=== PATIENT | female | born 1945 | race Caucasian/White ===

== ENCOUNTER 2017-02-22 09:09 | Inpatient (IN) | payer OTHER ==
[~2017-02-22] VITALS: Ht 157.5 cm; Wt 84.6 kg
--- NOTE | ~2017-02-22 | EKG ---
[address] [place] [address] ELECTROCARDIOGRAM REPORT Name: OKSANABATORREY López Room #: 447-P ADM IN M.R.#: [id number] Admission: 02/22/17 Attend Phys: Fawad Meehan MD Discharge: Date of : 43 Report #: [id number] THIS REPORT FOR: //name// [facility] Test Date: 2017-02-26 Test Time: 06:54:38 Pat Name: MAMTA GANDHI Department: Room: 447 Gender: F Fireman Helper: JUAN MANUEL : 1945 Requested By: Gerardo Connolly Order Number: [id number] MD: Son Tinajero Measurements Intervals [place] Rate: 96 P: 66 [place]: 148 QRS: 72 QRSD: 91 T: 41 QT: 384 QTc: 486 Interpretive Statements Sinus rhythm Borderline prolonged QT interval Compared to ECG 02/25/2017 06:53:35 Sinus tachycardia no longer present Electronically Signed On 02-26-2017 8:25:54 AUTO CLUB TRAVEL COUNSELOR by Son Tinajero [email or web address] <ELECTRONICALLY SIGNED> By: Son Tinajero MD, [facility] 02/26/17 [phone] Son Tinajero MD, FACC /EPI
--- NOTE | ~2017-02-22 | EKG ---
[place] [address] [facility] [place] [address] ELECTROCARDIOGRAM REPORT Name: MAMTA GANDHI Room #: 447-P ADM IN M.R.#: [id number] Admission: 02/22/17 Attend Phys: Fawad Meehan MD Discharge: Date of : 43 Report #: [id number] THIS REPORT FOR: //name// [facility] Test Date: 2017-02-25 Test Time: 06:53:35 Pat Name: MAMTA GANDHI Department: Room: 447 Gender: F Drencher: JUAN MANUEL : 1945 Requested By: Sheron Borrego Order Number: [id number] MD: Son Tinajero Measurements Intervals [place] Rate: 100 P: 59 [place]: 135 QRS: 39 QRSD: 82 T: 21 QT: 345 QTc: 445 Interpretive Statements Sinus tachycardia Otherwise no significant abnormality Baseline wander in lead(s) V6 Compared to ECG 02/24/2017 20:24:25 No significant change was found Electronically Signed On 02-25-2017 8:40:56 RESPIRATORY THERAPY INSTRUCTOR by Son Tinajero [email or web address] <ELECTRONICALLY SIGNED> By: Son Tinajero MD, [facility] 02/25/17 [phone] 0653 Son Tinajero MD, [facility] /EPI
--- NOTE | ~2017-02-22 | EKG ---
[address] [place] [address] ELECTROCARDIOGRAM REPORT Name: MAMTA GANDHI Room #: 447-P ADM IN M.R.#: [id number] Admission: 02/22/17 Attend Phys: Fawad Meehan MD Discharge: Date of : 43 Report #: [id number] THIS REPORT FOR: //name// [facility] Test Date: 2017-02-24 Test Time: 20:54:06 Pat Name: MAMTA GANDHI Department: Room: 447 Gender: F Jazz Singer: Tad MELCHOR : 1945 Requested By: Eboni Weinstein Order Number: [id number] MD: Son Tinajero Measurements Intervals [place] Rate: 115 P: 57 [place]: 135 QRS: 43 QRSD: 83 T: 7 QT: 322 QTc: 446 Interpretive Statements Sinus tachycardia Otherwise no significant abnormality Compared to ECG 02/24/2017 20:24:25 Atrial fibrillation no longer present Electronically Signed On 02-25-2017 8:29:30 SPEECH LANGUAGE ASSISTANT by Son Tinajero [email or web address] <ELECTRONICALLY SIGNED> By: Son Tinajero MD, [facility] 02/25/17 08 53 53 Son Tinajero MD, FAC /EPI
--- NOTE | ~2017-02-22 | HC ---
[facility] [place] [address] CONSULTATION Name: MAMTA GANDHI Maribel Room #: 447-P [facility] IN M.R.#: [id number] Admission: 02/22/17 Attend Phys: Fawad Meehan MD Discharge: 02/26/17 Date of : 43 Report #: [id number] THIS REPORT FOR: //name// CC: Michael Meehan MD DATE OF SERVICE: 02/23/2017 PULMONARY CONSULTATION REFERRING PROVIDER: Fawad Meehan MD REASON FOR CONSULTATION: Shortness of breath and hypoxemia. CHIEF COMPLAINT: Headache. HISTORY OF PRESENT ILLNESS: Our group was asked to see the patient in consultation while hospitalized at [facility]. A pleasant 71-year-old woman without any past pulmonary history. Denies ever use of tobacco. No prior pulmonary diagnosis. Did have a history of lymphoma she states 50 years ago diagnosed by cervical lymph node. Biopsy was treated by her report with neck and chest radiation. No evidence of recurrent disease, had been having some headaches about 24 hours ago that prompted Emergency Room evaluation. An imaging study of the head with MRA showed multiple right cerebral hemispheric subcortical abnormalities suggestive of prior small strokes that are currently under evaluation. Lumbar puncture was unrevealing as part of her workup for nausea, vomiting, weakness and headache. She underwent CT chest and pelvis, which did reveal some enlargement of some mediastinal lymph nodes of unclear significance. No other pulmonary pathology was noted. However, the patient has been hypoxic during the hospital stay. She states earlier today when placed on room air, oxygen saturations were in the 70s currently is on 3 liters. Again, no cough, congestion, wheezing, chest pain. Echocardiogram is pending. No prior thyroid or prior neurologic disease that she is aware of. ALLERGIES: None known. PAST MEDICAL HISTORY: 1. History of hypertension. 2. History of Hodgkin's lymphoma as described in HPI. OUTPATIENT MEDICATIONS: Include atorvastatin. SOCIAL HISTORY: Never a smoker, occasional alcohol consumption. Currently retired from [employer]. [facility] [address] [place] [address] CONSULTATION Name: MAMTA GANDHI Room #: 447-P [facility] IN M.R.#: [id number] Admission: 02/22/17 Attend Phys: Fawad Meehan MD Discharge: 02/26/17 Date of : 43 Report #: [id number] FAMILY HISTORY: Significant for hypertension. REVIEW OF SYSTEMS: CONSTITUTIONAL: No fevers or chills, change in weight or appetite, had headaches as described. ENT: No visual disturbance, upper respiratory congestion, rhinorrhea or dysphagia. CARDIOVASCULAR: No chest pains or palpitations. GASTROINTESTINAL: Some nausea and vomiting. GENITOURINARY: No dysuria, no frequency or hematuria. INTEGUMENT: Denies any rash. MUSCULOSKELETAL: No joint pains or swelling. NEUROLOGIC: Some numbness over the distal left upper extremity with some clumsiness. PHYSICAL EXAMINATION: VITAL SIGNS: Afebrile, pulse 100, respiratory rate 18, blood pressure 138/64, oxygen saturation 96% on 3 liters. GENERAL: This is a pleasant elderly woman in no distress. HEENT: Clear oropharynx. NECK: Supple. No lymphadenopathy. LUNGS: Clear. No wheeze or crackles. Chest revealed some kyphosis. CARDIOVASCULAR: Heart regular. No murmurs noted. ABDOMEN: Soft, nontender, no masses. EXTREMITIES: Without edema. LABORATORY DATA: A CBC revealed an elevated white blood cell count of 17,000, hemoglobin 10, hematocrit 31, platelet count 387. ESR is 65. Sodium 140, potassium 3.2, chloride 104, bicarbonate 26, BUN 6, creatinine 0.8, glucose 129. IMAGING STUDIES: As described in HPI. IMPRESSION AND PLAN: 1. Hypoxemia of unclear etiology, would be concerned about possible shunt physiology that may be such as a patent foramen ovale, which may contribute to her prior small cerebrovascular accidents, suggest further evaluation with a bubble study for echo, would also consider hypoventilation syndrome associated with neurologic disease or thyroid disease. We will check TSH and an arterial blood gas in a.m. 2. Small cerebrovascular accidents. 3. Anemia. 4. Leukocytosis. Recommend as outlined above. We will evaluate pulmonary status further now it may be relating to her neurologic status. [address] [address] CONSULTATION Name: MAMTA GANDHI Room #: 447-P DIS IN M.R.#: [id number] Admission: 02/22/17 Attend Phys: Fawad Meehan MD Discharge: 02/26/17 Date of : 43 Report #: [id number] Thank you for requesting your suggestions. <ELECTRONICALLY SIGNED> By: Kamlesh Marrero MD 02/27/17 1726 2100 0258 Kamlesh Marrero MD /nt
--- NOTE | ~2017-02-22 | EKG ---
[address] [place] [address] ELECTROCARDIOGRAM REPORT Name: MAMTA GANDHI Room #: 447-P ADM IN M.R.#: [id number] Admission: 02/22/17 Attend Phys: Fawad Meehan MD Discharge: Date of : 43 Report #: [id number] THIS REPORT FOR: //name// [facility] Test Date: 2017-02-24 Test Time: 20:24:25 Pat Name: MAMTA GANDHI Department: Room: 447 P Gender: F Appeals Examiner: Tad MELCHOR : 1945 Requested By: Eboni Weinstein Order Number: [id number] MD: Gerardo Connolly Measurements Intervals [place] Rate: 158 P: IN: QRS: 84 QRSD: 85 T: -13 QT: 289 QTc: 469 Interpretive Statements Atrial fibrillation with rapid V-rate Borderline right axis deviation Repolarization abnormality, prob rate related Compared to ECG 02/22/2017 10:02:29 Early repolarization now present Sinus tachycardia no longer present Electronically Signed On 02-24-2017 20:59:57 PIG HANDLER by Gerardo Connolly [email or web address] <ELECTRONICALLY SIGNED> By: Gerardo Connolly MD 02/24/172058 23 23 Gerardo Connolly MD /EPI
--- NOTE | ~2017-02-22 | HC ---
[facility] [place] [address] CONSULTATION Name: MAMTA GANDHI Maribel Room #: 447-P [facility] IN M.R.#: [id number] Admission: 02/22/17 Attend Phys: Fawad Meehan MD Discharge: 02/26/17 Date of : 43 Report #: [id number] THIS REPORT FOR: //name// CC: Michael Meehan DATE OF SERVICE: 02/22/2017 HISTORY OF PRESENT ILLNESS: This is a 71-year-old female patient who was evaluated by me for headache. Onset was early this morning, but the patient said that she is having some headache for about 1 year. It comes about once a week. It is in both temporal area, but this headache is different and is severe. She does not know anything which brought it on. She has been exposed to the flu-like symptoms and she indicates that her left arm is becoming numb. This came with the headache. REVIEW OF SYSTEMS: Indicate she has a history of hypertension. She has some nausea and vomiting. She has a history of peptic ulcer disease. She indicates that she had an MRI done and [facility] many years ago and she may have had lymphoma at that time. She does not remember that much history. She is somewhat confused, but son cannot confirm that history. She is not complaining of any eye symptom, but does have eye finding. There is no ENT, cardiac symptom. ER physician tells me that she was hypoxic and that is why they did a CT angio. Rest of the cranial nerve examination looks unremarkable. OBJECTIVE: She appeared to have symmetrical strength, sensation, reflexes and tones. There is no meningeal sign in this patient. I could not have a very good look at the fundus, but she does appear to have on cranial nerve examination, pretty persistent difficulty with the visual field in the left eye in the temporal area. She is not aware of it and she does not think it is old. She, otherwise, is reasonably a well-developed individual. She does not have any dysmorphic features of eyes, ears and face. Her vision and hearing looks adequate. Her pulses are palpable. She has no edema, cyanosis or jaundice. Cardiac examination shows unremarkable heart sounds and no murmur. Respiratory examination: Clinically, she does not appear to have any marked rhonchi. VITAL SIGNS: Her blood pressure is 108/63, pulse is 103, temperature is 98.1. Bedside pulse oximetry now is 97. White count is 15.1. Her PT, PTT is pending. CT scan of the head was reviewed and that is unremarkable. IMPRESSION: There are multiple worrisome features in this patient. She has a new onset of headache; although, she has some headache for a long time. She does have some confusion. She appeared to have some visual field deficit. Her [facility] [address] [place] [address] CONSULTATION Name: BA GANDHITORREY López Room #: 447-P DIS IN M.R.#: [id number] Admission: 02/22/17 Attend Phys: Fawad Meehan MD Discharge: 02/26/17 Date of : 43 Report #: [id number] white count is up and she has other systemic symptoms. She also has some numbness on the left arm. Because of that, she needs further workup and I suggested that we go ahead and do an MRI of the brain. I will just go ahead and do MRI of the brain without contrast for the time being. Because of the prior history of Hodgkin's lymphoma, I will go ahead and suggested spinal tap in this patient. I discussed all of them with the patient and I discussed the indication, potential complications and alternative of MRI as well as spinal tap. They wanted to proceed with it and as per hospital protocol, I talked to radiologist and he is going to arrange and okay it. RECOMMENDATION: Plan is to get a stat MRI in this patient. If MRI is unremarkable, then proceed with the spinal tap. The patient is agreeable for all this and very well understands the indication, potential complications and alternative of spinal tap and MRI with contrast if we need to proceed with that later on. More than 50 minutes of time was spent taking care of this patient today and majority of that time was spent counseling the family and the patient and coordinating her care. Thank you very much for this referral. <ELECTRONICALLY SIGNED> By: Stefan Jackson MD 03/02/17 1815 1546 0054 Stefan Jackson MD /nt
--- NOTE | ~2017-02-22 | EKG ---
[place] [address] [facility] [place] [address] ELECTROCARDIOGRAM REPORT Name: MAMTA GANDHI Room #: 170-3 ADM IN M.R.#: [id number] Admission: 02/22/17 Attend Phys: Fawad Meehan MD Discharge: Date of : 43 Report #: [id number] THIS REPORT FOR: //name// [facility] ED Test Date: 2017-02-22 Test Time: 10:02:29 Pat Name: MAMTA GANDHI Department: Room: 170 Gender: F Budget Director: [facility] : 1945 Requested By: Shannan Hernandez Order Number: [id number] MD: oSn Tinajero Measurements Intervals [place] Rate: 110 P: 54 NM: 150 QRS: 37 QRSD: 92 T: 12 QT: 339 QTc: 459 Interpretive Statements Sinus tachycardia Otherwise no significant abnormality Baseline wander in lead(s) III,aVL No previous ECG available for comparison Electronically Signed On 02-22-2017 14:33:10 CONCRETE BOOM PUMP OPERATOR by Son Tinajero [email or web address] <ELECTRONICALLY SIGNED> By: Son Tinajero MD, [facility] 02/22/17 1433 1002 1002 Son Tinajero MD, FACC /EPI
--- NOTE | ~2017-02-22 | HC ---
[facility] [place] [address] CONSULTATION Name: MAMTA GANDHI Maribel Room #: 447-P [facility] IN ..#: [id number] Admission: 02/22/17 Attend Phys: Fawad Meehan MD Discharge: 02/26/17 Date of : 43 Report #: [id number] THIS REPORT FOR: //name// CC: Michael Meehan DATE OF SERVICE: 02/24/2017 HISTORY OF PRESENT ILLNESS: The patient is a 71-year-old white female who was admitted with nausea, vomiting, diarrhea and headache. She was diagnosed with viral gastroenteritis. She was seen by Neurology, however, with the significant headache and her complaints of left hand numbness, left-sided weakness, especially involving the left upper extremity. MRI did reveal evidence of multiple right cerebral subcortical foci infarctions. Her workup is underway. Doppler was negative, although it did reveal evidence of a subclavian steal. Per report, she is to undergo an echocardiogram. We will defer further workup to Neurology and primary care. She does also have complaints of dyspnea with shortness of breath and Infectious Disease is involved along with pulmonary medicine regarding possible hypoventilation. She did undergo a successful lumbar puncture. We are seeing her in rehabilitation medicine consultation. PAST MEDICAL HISTORY: Significant for Hodgkin's disease, apparently diagnosed 40-50 years ago, history of irritable bowel syndrome, and peptic ulcer disease. MEDICATIONS: Please see the full medication listing. ALLERGIES: No known drug allergies. FAMILY HISTORY: Significant for hypertension. SOCIAL HISTORY: Lives in a house with her son, 3 steps in. She did not utilize gait aids premorbidly. She was not on any oxygen at home. She was driving. Son works during the day. REVIEW OF SYSTEMS: No current complaints of chest pain, shortness of breath except with activity. No abdominal pain. She does note the left hand numbness and some clumsiness of the left upper extremity. No complaints of focal extremity pain complaints. Nausea appears to have resolved. PHYSICAL EXAMINATION: GENERAL: A 71-year-old white female, in no obvious distress. She is pleasant. VITAL SIGNS: Last recorded temperature is 98.1, pulse 104, respirations 16, blood pressure is 144/77. She is currently on 3 liters nasal prong O2. HEENT: Facies revealed some depressed left nasolabial fold. EOMs appeared to be full. I could not detect any obvious visual field neglect to confrontation. EXTREMITIES: Functional range of motion of both upper extremities and lower [facility] [address] [place] [address] CONSULTATION Name: MAMTA GANDHI Room #: 447-P [facility] IN [facility].#: [id number] Admission: 02/22/17 Attend Phys: Fawad Meehan MD Discharge: 02/26/17 Date of : 43 Report #: [id number] extremities. She does have some definite left upper extremity clumsiness with decreased attempted fine finger dexterity and [id number]. Some decreased sensation over the left dorsal wrist and over the hand as well. I would grade her strength at a 4-/5 proximally and a grade 4- to 3+ distally. Right upper extremity strength appeared to be full. Lower extremity strength is probably a grade 4 to 4- left lower extremity and 4 right lower extremity. DTRs were 1. There is no clonus. Sensory examination was reasonably intact to simultaneous stimulation except for some decrease over the left hand and wrist as noted above. She is needing min assist with sit to stand. Gait was 40 feet mod assist without a device. She does have some left-sided neglect noted when up. ASSESSMENT: A 71-year-old white female with the following problem list: 1. Multiple right cerebral subcortical foci strokes. 2. Left-sided weakness, upper extremity greater than lower extremity. 3. Left hemisensory decrease with some left-sided neglect. 4. Right subclavian steal. 5. Echocardiogram results are pending. 6. Viral gastroenteritis that appears to have resolved. 7. History of Hodgkin's disease. 8. Irritable bowel syndrome. 9. Peptic ulcer disease. 10. Nondominant hemispheric strokes as above. She is right-handed. PLAN: We would anticipate that the patient should be a good acute in-hospital inpatient rehabilitation candidate. At this point in time, further workup is underway. I have discussed with the patient and her son regarding realistic goals for her. Again, she will likely benefit from an acute in-hospital inpatient rehabilitation stay as she further medically stabilizes and her workup is completed. We will be glad to follow along with you regarding her rehab therapy needs. <ELECTRONICALLY SIGNED> By: Valentino Morrow MD 03/02/17 1509 1555 0017 Valentino Morrow MD /LAURA
--- NOTE | ~2017-02-22 | H ---
[facility] [place] [address] HISTORY AND PHYSICAL Name: MAMTA GANDHI Maribel Room #: 447-P ADM IN M.R.#: [id number] Admission: 02/22/17 Attend Phys: Fawad Meehan MD Discharge: Date of : 43 Report #: [id number] THIS REPORT FOR: //name// CC: Michael Meehan DATE OF SERVICE: 02/22/2017 CHIEF COMPLAINT: Headache, nausea, vomiting and diarrhea. HISTORY OF PRESENT ILLNESS: The patient is a 71-year-old female with history of dyslipidemia, presented to the Emergency Room complaining of headache, nausea, vomiting and diarrhea. Headache started at around 2:00 a.m. this morning. The patient states she has had on and off headache for several months along with some floaters. The patient presented to the Emergency Room because she had no relief with ibuprofen. She also had nausea, vomiting and diarrhea. She apparently had a son who was sick with flu-like illness with nausea, vomiting a couple of weeks ago. The patient denies any fever, chills, no abdominal pain. No blood or mucus in the stool. The patient denies any dysuria or hematuria. The patient also complained of numbness in the dorsum of the left hand. This started along with the headache. The patient denies any photophobia to me. The patient denies any lower extremity swelling, or fever or chills. No cough or expectoration. PAST MEDICAL HISTORY: Significant for hypertension. No history of any peptic ulcer disease or bleeding disorder. No history of any diagnosis of migraine headache in the past. History of Hodgkin lymphoma 40 years ago. The patient is followed up at [facility]. ALLERGIES: No known drug allergy. HOME MEDICATIONS: Includes atorvastatin. SOCIAL HISTORY: No smoking, alcohol abuse, or illicit drug abuse. FAMILY HISTORY: Significant for hypertension. REVIEW OF SYSTEMS: CONSTITUTIONAL: No recent weight loss, weight gain. No fever or chills. EYES: No change in vision. THROAT: Denies any sore throat. CARDIOVASCULAR: No chest pain, dizziness, palpitations. RESPIRATORY: No cough or expectoration. GASTROINTESTINAL: As above. GENITOURINARY: No dysuria, hematuria. NEUROLOGIC: No focal numbness or weakness of the extremities. [facility] [address] [place] [address] HISTORY AND PHYSICAL Name: MAMTA GANDHI Room #: 447-P [facility] IN ..#: [id number] Admission: 02/22/17 Attend Phys: Fawad Meehan MD Discharge: Date of : 43 Report #: [id number] PSYCHIATRIC: No anxiety and depression. The 12-point review of systems is negative other than the positives and negatives dictated in the history of present illness and the review of systems. PHYSICAL EXAMINATION: VITAL SIGNS: Reveal blood pressure is 128/66, heart rate of 110 per minute, afebrile. GENERAL: The patient is awake and alert, not in acute respiratory distress. EYES: Pupils equal, reactive to light, nonicteric conjunctivae. THROAT: She has a dry oral mucosa. NECK: Supple, no JVD, no bruit, no lymphadenopathy. CARDIOVASCULAR SYSTEM: S1, S2, negative S3, no murmur. CHEST: Bilateral air entry present. Clear on auscultation. ABDOMEN: Soft, bowel sounds present, no mass, no organomegaly, no tenderness. PERIPHERY: No pedal edema. No calf tenderness. Dorsalis pedis 1+. NEUROLOGICAL: Pupils are equal, reactive to light. Extraocular movements intact. No facial asymmetry noted. Power is 5/5 in upper extremity and the lower extremity, no obvious sensory deficit in the lower extremity. The patient has subjective reduced sensation on the dorsum of the left hand. LABORATORY DATA: Reviewed. CT of the chest, abdomen and pelvis was performed, which showed no evidence of any PE. Abdomen and pelvis showed moderate stool in the proximal colon. There is an incidental 1.5 cm right ovarian cyst. There is a 6.7 cm hiatal hernia. No evidence of any obstruction. CT of the brain showed no acute abnormality. Chest x-ray showed no acute abnormality. White count is elevated at 15.1, hemoglobin is 10.4, platelets 387. Differential on the white count showed 76% neutrophils. Chemistry showed a BUN of 11 and creatinine of 0.7. AST and ALT are within normal limit. Albumin is 3.1. UA revealed trace blood and trace leukocyte esterase. Influenza is negative. ASSESSMENT AND PLAN: 1. Nausea, vomiting, diarrhea and headache, sounds more like a viral gastroenteritis. We will send a stool for culture and empirically started on IV Cipro and Flagyl. We will repeat a CBC in the morning. 2. Headache, most likely a part of the viral syndrome. The patient stated that she has some numbness on the dorsum of the left hand. She has no other neurological deficits. We will consult neurologist. 3. Deep venous thrombosis prophylaxis. Sequential compression devices on the legs for deep venous thrombosis prophylaxis. 4. History of dyslipidemia. 5. Anemia. I have ordered iron, ferritin, and total iron binding capacity levels. 6. A 1.5 cm right ovarian cyst. This was explained to the patient. I did explain to the patient and the family that she needs to follow up with area manager outpatient regarding the ovarian cyst. [facility] [address] [place] [address] HISTORY AND PHYSICAL Name: MAMTA GANDHI Room #: 447-P ADM IN M.R.#: [id number] Admission: 02/22/17 Attend Phys: Fawad Meehan MD Discharge: Date of : 44 Report #: [id number] Treatment plan has been explained to the patient in detail. <ELECTRONICALLY SIGNED> By: Fawad Meehan MD 02/23/17 1248 1331 1416 Fawad Meehan MD /nt
--- NOTE | ~2017-02-22 | 2DMMODE ---
[facility] [address] [place] [address] 2 D/M-MODE ECHOCARDIOGRAM Name: MAMTA GANDHI Room #: 447-P ADM IN ..#: [id number] Admission: 02/22/17 Attend Phys: Tad Gutierres Discharge: Date of : 43 Date of Service: 02/24/17 1018 Report #: [id number] THIS REPORT FOR: //name// APPROVED REPORT Study performed: 02/24/2017 10:19:36 EXAM: Comprehensive 2D, Doppler, and color-flow Echocardiogram Patient Location: Bedside Room #: [facility] Status: routine BSA: 1.85 HR: 116 bpm BP: 150/103 mmHg Rhythm: Tachycardia Other Information Study Quality: Good Indications CVA/TIA Hypertension/HDD Echo Enhancing Agent Indication: Rule out Shunt Agent(s) / Amount(s) Used: Agitated Saline 6 cc 2D Dimensions RVDd: 35.15 mm LVEF(%): 62.18 (>50%) IVSd: 11.75 (7-11mm) LVOT Diam: 20.37 (18-24mm) LVDd: 42.15 mm PWd: 10.73 (7-11mm) Ascending Ao: 32.48 (22-36mm) LVDs: 28.16 (25-40mm) Aortic Root: 32.75 mm Montesinos's LVEF: 62.18 % Volumes Left Atrial Volume (Systole) Single Plane 4CH: 55.44 mL Single Plane 2CH: 49.99 mL LA ESV Index: 31.00 mL/m2 Aortic Valve AoV Peak Gold.: 1.84 m/s AO Peak Gr.: 13.53 mmHg LVOT Max P.96 mmHg LVOT Max V: 1.32 m/s [facility] [address] [place] [place] [address] 2 D/M-MODE ECHOCARDIOGRAM Name: MAMTA GANDHI Room #: 447-P [facility] IN ..#: [id number] Admission: 02/22/17 Attend Phys: Tad Gutierres Discharge: Date of : 43 Date of Service: 02/24/17 1018 Report #: [id number] YANA Vmax: 2.34 cm2 Mitral Valve E/A Ratio: 0.9 MV Decel. Time: 137.96 ms MV E Max Gold.: 1.36 m/s MV A Gold.: 1.44 m/s MV PHT: 40.01 ms IVRT: 46.14 ms Pulmonary Valve PV Peak Gold.: 0.97 m/s PV Peak Gr.: 3.79 mmHg Pulmonary Vein P Vein S: 0.93 m/s P Vein D: 0.85 m/s P Vein S/D Ratio: 1.09 Tricuspid Valve TR Peak Gold.: 3.80 m/s RAP Estimate: 5.00 mmHg TR Peak Gr.: 57.83 mmHg PA Pressure: 63.00 mmHg Left Ventricle The left ventricle is normal size. There is normal LV segmental wall motion. There is normal left ventricular wall thickness. Left ventricular systolic function is normal. LVEF is 55-60%. Mild diastolic dysfunction is present (impaired relaxation pattern). Right Ventricle The right ventricle is normal size. The right ventricular systolic function is normal. Atria Left atrium is at the upper limits of normal. No shunting noted by contrast bubble injection. The right atrium size is normal. Aortic Valve Aortic valve is mildly calcified. No aortic regurgitation. There is no aortic valvular stenosis. Mitral Valve The mitral valve is normal in structure. Mild mitral regurgitation. [facility] [address] [place] [address] 2 D/M-MODE ECHOCARDIOGRAM Name: MAMTA GANDHI Room #: 447-P [facility] IN ..#: [id number] Admission: 02/22/17 Attend Phys: Tad Gutierres Discharge: Date of : 43 Date of Service: 02/24/17 1018 Report #: [id number] Tricuspid Valve The tricuspid valve is normal in structure. Mild to moderate tricuspid regurgitation. Estimated PAP of 60-65mmHg. Pulmonic Valve The pulmonary valve is normal in structure. There is no pulmonic valvular regurgitation. Great Vessels The aortic root is normal in size. The ascending aorta is normal in size. IVC is normal in size and collapses >50% with inspiration. Pericardium There is no pericardial effusion. <Conclusion> Left ventricular systolic function is normal. There is normal LV segmental wall motion. LVEF is 55-60%. Mild diastolic dysfunction No shunting by contrast bubble injection Aortic valve is mildly calcified. No aortic regurgitation or stenosis The mitral valve is normal in structure. Mild mitral regurgitation. Mild to moderate tricuspid regurgitation. Estimated pulmonary artery pressure of 60-65mmHg. There is no pericardial effusion. <ELECTRONICALLY SIGNED> By: Son Tinajero MD, FACC 02/24/17 1018 1018 1018 Son Tinajero MD, FACC /INF
--- NOTE | ~2017-02-22 | HC ---
[facility] [place] [address] [place] [address] CONSULTATION Name: MAMTA GANDHI Maribel Room #: 447-P [facility] IN M.R.#: [id number] Admission: 02/22/17 Attend Phys: Fawad Meehan MD Discharge: Date of : 43 Report #: [id number] THIS REPORT FOR: //name// CC: Michael Meehan REASON FOR CONSULTATION: I was asked to evaluate concerning leukocytosis and possible infection in the setting of acute stroke. HISTORY OF PRESENT ILLNESS: The patient was a 71-year-old with acute onset of nausea, vomiting and diarrhea associated with worsening headache. She then developed clumsiness and paresthesias to her left hand and arm. Denied any fever, chills or sweats. In the previous 2 weeks, she developed viral gastroenteritis along with the other members of her family. She also notes that she has had over the last several months intermittent episodes of headache that would be transient in nature. None of these have been associated with any other neurologic complaints. She reports her headache to be diffuse, mostly over the front, but does wrap around back with occasional sharp pain to her right temporal region. Remote history of Hodgkin's lymphoma. No travel. No HIV risk factors. REVIEW OF SYSTEMS: Notes no rash, arthritis, cough or sputum production. She has had dyspnea, which is a new issue for her. No pleuritic chest pain. No abdominal pain or dysuria. Her stools now are normal. She has had no blood in her stools. ALLERGIES: None. MEDICATIONS: As noted on her MAR including atorvastatin prior to her admission. PAST MEDICAL HISTORY: Hypertension, Hodgkin's lymphoma. FAMILY HISTORY: Hypertension. SOCIAL HISTORY: Nonsmoker, no significant alcohol intake. PHYSICAL EXAMINATION: VITAL SIGNS: Afebrile and hemodynamically stable. GENERAL: She was alert and cooperative. Orientation normal. Speech is normal. SKIN: Unremarkable. LYMPH: Unremarkable. HEENT: Unremarkable. LUNGS: Clear. HEART: Regular, without murmur. ABDOMEN: Soft and nontender. No hepatosplenomegaly or mass. EXTREMITIES: Unremarkable. [facility] [address] [place] [address] CONSULTATION Name: MAMTA GANDHI Maribel Room #: 447-P [facility] IN M.R.#: [id number] Admission: 02/22/17 Attend Phys: Fawad Meehan MD Discharge: Date of : 43 Report #: [id number] NEUROLOGIC: Pupils equal, round and reactive to light. Cranial nerves intact. Weakness in the left upper extremity with clumsiness. Beam Machine Operator strength was reduced as well as interosseous muscles. Movements in the hand and wrist were coordinated. Sensation intact. Remainder of her examination was normal. LABORATORY STUDIES: MRI scan of the brain showed right cerebral infarct. CT scan of the chest unremarkable. CT of the abdomen and pelvis showed right ovarian cyst. Influenza antigen negative. Blood culture is negative to date. CSF examination, 4 WBCs, 4 RBCs, 57 protein, 76 glucose. Sodium 140, potassium 3.2, bicarbonate normal. Creatinine 0.8, alkaline phosphatase 121, ALT 17, hemoglobin 9.8, platelet count 387,000, white count 16.8, 76% segs, 17% lymphs. Sedimentation rate 65. Urinalysis unremarkable. IMPRESSION: Acute stroke with complaints of headaches, may have a vascular component here. Although no history of migraine headaches, the pattern is consistent with this. Source of embolic stroke not evident to date. I am a bit concerned at her sedimentation rate 65. Although no other findings of subacute bacterial endocarditis, I would like to evaluate the heart further. In addition, we will monitor for fever and await her blood culture results. I would also like to repeat her CBC within the next 48 hours. We will observe now off antibiotics and reevaluate in 24 hours. <ELECTRONICALLY SIGNED> By: José Luis Blanco MD 02/24/17 1741 1316 1656 José Luis Blanco MD /nt
[2017-02-22 09:10] VITALS: BP 166/81
[2017-02-22 10:31] LABS: URINE BILIRUBIN NEGATIVE (Negative); URINE BLOOD TRACE (Negative); URINE CLARITY CLEAR; URINE COLOR YELLOW; URINE GLUCOSE-RANDOM* NEGATIVE (Negative); URINE KETONES NEGATIVE (Negative); URINE LEUKOCYTES TRACE (Negative); URINE NITRITE NEGATIVE (Negative); URINE PROTEIN (DIPSTICK) NEGATIVE (Negative); URINE UROBILINOGEN 0.2 E.U./dl (0.2-1.0)
[2017-02-22 10:43] LABS: HEMATOCRIT 32.7 % (37.0-47.0); HEMOGLOBIN 10.4 gm/dL (12.0-15.0); MCH 25.7 pg (26.0-34.0); MCHC 31.9 g/dL (28.0-37.0); MCV 80.7 fL (80.0-100.0); PLATELET COUNT 387 thou/uL (150-400); RBC 4.06 mil/uL (4.20-5.00); RDW 17.2 % (10.5-14.5); WBC 15.1 thou/uL (4.0-11.0)
[2017-02-22] MEDS ORDERED: VALIUM5 MG PO (10:48)
[2017-02-22] MEDS ORDERED: AMBIEN 5 MG TABL5 M1 PO (10:49)
[2017-02-22] MEDS ORDERED: LIPITOR 20 MG T20 M1 PO (10:49)
[2017-02-22 10:50] LABS: ANION GAP 10 mmol/L (7-16); BUN 11 mg/dL (7-18); CALCIUM 8.5 mg/dL (8.5-10.1); CHLORIDE 108 mmol/L (98-107); CO2 25 mmol/L (21-32); CREATININE 0.7 mg/dL (0.6-1.0); GLUCOSE 114 mg/dL (74-106); POTASSIUM 3.6 mmol/L (3.5-5.1); SODIUM 143 mmol/L (136-145)
[2017-02-22] MEDS ORDERED: NORCO 5-325 TA1 EACH PO (10:50)
[2017-02-22] MEDS ORDERED: TRAMADOL 50 MG50 MG PO (10:50)
[2017-02-22 10:59] LABS: ALBUMIN 3.1 g/dL (3.4-5.0); SGOT 14 U/L (15-37); SGPT 17 U/L (30-65); TOTAL BILIRUBIN 0.2 mg/dL (<0.1-1.0); TOTAL PROTEIN 7.6 g/dL (6.4-8.2); TROPONIN-I < 0.04 ng/mL (<0.06)
[2017-02-22 11:34] LABS: ABSOLUTE NEUTROPHILS 11.5 thou/uL (1.4-8.2); ANISOCYTOSIS 1+; MICROCYTES FEW; OVALOCYTES FEW
[2017-02-22 13:43] LABS: % SATURATION 7 % (20-39); IRON 25 ug/dL (50-170); TIBC 364 ug/dL (250-450)
[2017-02-22 14:53] VITALS: BP 108/63
[2017-02-22 17:47] VITALS: BP 110/66
[2017-02-22 20:20] LABS: APTT 29.9 Seconds (24.5-32.8); D-DIMER 2.49 ug/mLFEU (0.19-0.50); INR 1.1; PROTIME 11.1 Seconds (9.3-11.4)
[2017-02-22 20:22] VITALS: BP 139/88
[2017-02-23 00:55] VITALS: BP 155/88
[2017-02-23 04:04] VITALS: BP 146/81
[2017-02-23 05:44] LABS: ABSOLUTE NEUTROPHILS 13.5 thou/uL (1.4-8.2); BASOPHILS 0.4 % (0.0-2.0); EOSINOPHILS 0.6 % (0.0-3.0); HEMATOCRIT 30.5 % (37.0-47.0); HEMOGLOBIN 9.8 gm/dL (12.0-15.0); LYMPHOCYTES 11.1 % (24.0-44.0); MCH 25.8 pg (26.0-34.0); MCHC 32.1 g/dL (28.0-37.0); MCV 80.5 fL (80.0-100.0); MONOCYTES 7.6 % (1.0-8.0); PLATELET COUNT 387 thou/uL (150-400); POLYS 80.3 % (36.0-66.0); RBC 3.79 mil/uL (4.20-5.00); RDW 16.9 % (10.5-14.5); WBC 16.8 thou/uL (4.0-11.0)
[2017-02-23 05:58] LABS: ANION GAP 10 mmol/L (7-16); BUN 6 mg/dL (7-18); CALCIUM 8.1 mg/dL (8.5-10.1); CHLORIDE 104 mmol/L (98-107); CHOLESTEROL 132 mg/dL (<200); CO2 26 mmol/L (21-32); CREATININE 0.8 mg/dL (0.6-1.0); GLUCOSE 129 mg/dL (74-106); HDL CHOLESTEROL 46 mg/dL (>40); LDL CHOLESTEROL 76 mg/dL (<100); MAGNESIUM 1.2 mg/dL (1.8-2.4); POTASSIUM 3.2 mmol/L (3.5-5.1); SODIUM 140 mmol/L (136-145); TC:HDL 2.9 Ratio (Not establshd); TRIGLYCERIDE 50 mg/dL (<150); VLDL 10 mg/dL (<40)
[2017-02-23 06:04] LABS: SERUM ASSESSMENT Clear
[2017-02-23 08:45] VITALS: BP 123/68
[2017-02-23 10:31] LABS: CSF GLUCOSE 76 mg/dL (40-70); CSF PROTEIN 57 mg/dL (15-45)
[2017-02-23 10:50] LABS: CSF COLOR COLORLESS; VOLUME 11 ml
[2017-02-23 10:51] LABS: CSF CLARITY CLEAR
[2017-02-23 10:58] LABS: CSF RBC 4 /mm3; CSF WBC 4 /mm3 (0-10)
[2017-02-23 16:07] LABS: SERUM ALBUMIN 3.4 g/dL (3.5-4.8)
[2017-02-23 16:55] VITALS: BP 135/62
[2017-02-23 20:57] VITALS: BP 138/64
[2017-02-23 23:05] LABS: GLYCOHEMOGLOBIN (HGB A1C) 5.7 % (4.8-5.6)
[2017-02-24 03:25] VITALS: BP 145/72
[2017-02-24 05:34] LABS: ABSOLUTE NEUTROPHILS 9.5 thou/uL (1.4-8.2); BASOPHILS 1.2 % (0.0-2.0); EOSINOPHILS 1.8 % (0.0-3.0); HEMATOCRIT 29.9 % (37.0-47.0); HEMOGLOBIN 9.6 gm/dL (12.0-15.0); LYMPHOCYTES 11.7 % (24.0-44.0); MCH 25.5 pg (26.0-34.0); MCHC 32.1 g/dL (28.0-37.0); MCV 79.6 fL (80.0-100.0); MONOCYTES 7.7 % (1.0-8.0); PLATELET COUNT 321 thou/uL (150-400); POLYS 77.6 % (36.0-66.0); RBC 3.75 mil/uL (4.20-5.00); RDW 17.4 % (10.5-14.5); WBC 12.3 thou/uL (4.0-11.0)
[2017-02-24 05:55] LABS: CALCIUM 8.2 mg/dL (8.5-10.1); CREATININE 0.7 mg/dL (0.6-1.0); POTASSIUM 3.6 mmol/L (3.5-5.1)
[2017-02-24 06:47] LABS: HCO3 25.3 mmol/L (22.0-26.0); PCO2 39.3 mmHg (35.0-45.0); PO2 84.5 mmHg (80.0-100.0); pH 7.427 (7.360-7.450); sO2 96.6 % (92.0-98.0)
[2017-02-24 07:46] VITALS: BP 150/103
[2017-02-24 15:10] VITALS: BP 144/77
[2017-02-24 19:50] VITALS: BP 133/76
[2017-02-25 04:50] VITALS: BP 176/75
[2017-02-25 08:10] VITALS: BP 189/73
[2017-02-25 16:05] VITALS: BP 147/75
[2017-02-25 21:21] VITALS: BP 188/88
[2017-02-26 05:32] VITALS: BP 179/89
[2017-02-26 07:22] VITALS: BP 152/76
[2017-02-26 08:49] VITALS: BP 152/76
[2017-02-26] MEDS ORDERED: IRON325 PO (11:59)
[2017-02-26] MEDS ORDERED: AUGMENTIN 875-1 EACH PO (11:59)
[2017-02-26] MEDS ORDERED: PRADAXA150 MG PO (11:59)
[2017-02-26] MEDS ORDERED: MAGNESIUM400 MG PO (12:00)
[2017-02-26] MEDS ORDERED: ASPIR 8181 MG PO (12:00)
[2017-02-26] MEDS ORDERED: TYLENOL325 MG PO (12:00)
[2017-02-26] MEDS ORDERED: METOPROLOL SUCC25 M1 PO (12:00)
[2017-02-26] MEDS ORDERED: TAMBOCOR 100 M100 M1 PO (12:00)
[2017-02-26] MEDS ORDERED: PEPCID20 MG PO (12:01)
[2017-02-26 15:06] LABS: CSF IgG 4.7 mg/dL (0.0-8.6)
[2017-02-28 05:10] LABS: ADENOVIRUS Negative (Negative); INFLUENZA A Negative (Negative); INFLUENZA B Negative (Negative); METAPNEUMOVIRUS Negative (Negative); PARAINFLUENZA 1 Negative (Negative); PARAINFLUENZA 2 Negative (Negative); PARAINFLUENZA 3 Negative (Negative); RHINOVIRUS Negative (Negative); RSV A Negative (Negative); RSV B Negative (Negative)
== END 2017-02-26 14:01 | DRG 64 ==
LOC: ER 09:09 → 4S 12:54 → EROBS 12:54 → 4S 12:54
PROVIDERS: Internal Medicine; Internal Medicine Pulmonary Disease; Nurse Practitioner Family; Physician Assistant; Psychiatry & Neurology Neuromuscular Medicine
PROC: 009U3ZX Drainage of Spinal Canal, Percutaneous Approach, Diagnostic (ICD-10-PCS; principal; 2017-02-23)
PROC: B01B1ZZ Fluoroscopy of Spinal Cord using Low Osmolar Contrast (ICD-10-PCS; principal; 2017-02-23)
DX: I63.9 Cerebral infarction, unspecified (principal); J69.0 Pneumonitis due to inhalation of food and vomit; N83.201 Unspecified ovarian cyst, right side; I10 Essential (primary) hypertension; R00.0 Tachycardia, unspecified; D72.820 Lymphocytosis (symptomatic); R09.02 Hypoxemia; D64.9 Anemia, unspecified; E78.5 Hyperlipidemia, unspecified; A08.4 Viral intestinal infection, unspecified; I48.0 Paroxysmal atrial fibrillation; I27.20 Pulmonary hypertension, unspecified; Z23 Encounter for immunization; Z85.71 Personal history of Hodgkin lymphoma; Z82.49 Family history of ischemic heart disease and other diseases of the circulatory system; Z87.11 Personal history of peptic ulcer disease; Z79.899 Other long term (current) drug therapy; Z79.82 Long term (current) use of aspirin
CPT/HCPCS: 10100

== ENCOUNTER 2017-02-25 11:49 | Inpatient (IN) | payer OTHER ==
[~2017-02-25] VITALS: Ht 157.5 cm; Wt 81.1 kg
--- NOTE | ~2017-02-25 | PLAN ---
[facility] [place] [address] REHAB UNIT PLAN OF CARE Name: MAMTA GANDHI Room #: 506-1 ADM IN M.R.#: [id number] Admission: 02/26/17 Attend Phys: Valentino Morrow MD Discharge: Date of : 44 Report #: [id number] THIS REPORT FOR: //name// CC: Michael Morrow DATE OF SERVICE: 02/28/2017 The patient is seen back earlier today. She was sleepy, but in no distress. Last recorded temperature 36.9, pulse 86, respirations 18, blood pressure 171/71. She is on 1 liter nasal cannula. She does have some left-sided weakness. Transfers are min assist. Gait has been mod assist 400 feet without a device. In occupational therapy, lower body dressing is min assist. In speech, she has mild comprehensive deficits. ASSESSMENT: 1. Multiple right cerebral subcortical foci strokes. 2. Left-sided weakness, upper extremity greater than lower extremity. 3. Left hemisensory decrease with some left-sided neglect. 4. Paroxysmal atrial fibrillation. 5. Cerebrovascular accident secondary to the atrial fibrillation. 6. Hypertension. 7. Hyperlipidemia. 8. Hypoxia with possible component of aspiration. PLAN: The overall plan of care is based on the preadmission screen, post-admission physician evaluation and information garnered from therapy assessments. 1. Estimated length of stay is probably at least 7-10 days or as needed depending upon how she does. 2. Medical prognosis is reasonably good. 3. Anticipated interventions includes the interdisciplinary acute inpatient rehabilitation program with PT, OT, speech, rehab nursing assisting regarding medication management, skin care prophylaxis, bowel and bladder issues and nursing education. We will have the multiple weight loss sales consultant physicians continue to follow as well. 4. Anticipated functional outcomes would be for the patient to become modified independent with transfers, mobility, ADLs, cognition, communication with the hopes of returning back to the home setting. At this point, she has been ambulatory without gait aids, so we will need to see how that progresses. 5. Discharge destination is back to the house where she lives with her son. 6. Expected therapy by this plan includes PT, OT and speech 1 hour per day, [address] [address] REHAB UNIT PLAN OF CARE Name: MAMTA GANDHI Room #: 506-1 ADM IN ..#: [id number] Admission: 02/26/17 Attend Phys: Valentino Morrow MD Discharge: Date of : 43 Report #: [id number] each five days a week throughout the duration of the acute inpatient rehabilitation stay. <ELECTRONICALLY SIGNED> By: Valentino Morrow MD 03/02/17 1509 [id number] Valentino Morrow MD /PMT
--- NOTE | ~2017-02-25 | H ---
[facility] [place] [address] HISTORY AND PHYSICAL Name: MAMTA GANDHI Room #: 506-1 ADM IN M.R.#: [id number] Admission: 02/26/17 Attend Phys: Valentino Morrow MD Discharge: Date of : 44 Report #: [id number] THIS REPORT FOR: //name// CC: Michael Morrow DATE OF SERVICE: 02/26/2017 HISTORY OF PRESENT ILLNESS: The patient is a 71-year-old white female who was originally admitted to [facility] with nausea, vomiting, diarrhea, and headache. She was diagnosed with viral gastroenteritis. She was seen by Neurology; however, was noted to have significant headache and complains of left hand numbness and weakness, especially the left upper extremity. MRI did reveal evidence of multiple right cerebral subcortical foci infarctions. Neurology has been involved. Findings were noted to be consistent with an embolic CVA and she has been found to have atrial fibrillation. Cardiology is involved and she is to continue the flecainide and Pradaxa. CVA was felt to be secondary to the atrial fibrillation. Her course has been complicated by hypoxia with possible component of aspiration. Infectious Disease is involved and she is to continue on the Augmentin. She has significant functional deficits and has been admitted now for acute in-hospital inpatient rehabilitation. PAST MEDICAL HISTORY: Hodgkin's disease. Apparently diagnosed 40-50 years ago. History of irritable bowel syndrome, and peptic ulcer disease. MEDICATIONS: Please see the full medication listing. The list includes her vitamins, herbals, and supplements. ALLERGIES: No known drug allergies. FAMILY HISTORY: Significant for hypertension. SOCIAL HISTORY: Lives in a house with her son, 3 steps in. She did not utilize gait aids premorbidly. She was not on any oxygen at home. She was driving. Son works during the day. REVIEW OF SYSTEMS: No current complaints of chest pain or shortness of breath except with activity. She feels that the left upper extremity numbness and weakness are overall improved. No focal extremity pain complaints. No abdominal pain. No chest pain. PHYSICAL EXAMINATION: GENERAL: A 71-year-old white female in no obvious distress. VITAL SIGNS: Last recorded temperature 98.2, pulse 88, respirations 18, blood pressure 175/79. [address] [address] HISTORY AND PHYSICAL Name: MAMTA GANDHI Room #: 506-1 [facility] IN [facility].#: [id number] Admission: 02/26/17 Attend Phys: Valentino Morrow MD Discharge: Date of : 43 Report #: [id number] NEUROLOGIC: She is alert. She is currently on 2 liters nasal prong O2. Facies appeared to be symmetric. She does have a depressed left knee nasolabial fold. EOMs appeared to be full. No obvious visual field neglect to confrontation. CHEST: Some diffuse decreased, but overall sounded clear. CARDIOVASCULAR: Regular rate and rhythm. ABDOMEN: Bowel sounds positive, nontender. GENITOURINARY AND RECTAL: Deferred. EXTREMITIES: She has functional range of motion of both upper extremities with some left upper extremity clumsiness with fine finger dexterity and [id number]. It appears improved from when I saw her before, however. Some decreased sensation over the left dorsal wrist. Strength is a grade 4- distally more of 4 proximally. Right upper extremity strength appeared to be full. Left lower extremity strength is probably a grade 4- to 4/5. Right lower extremity is 4/5. DTRs were 1. Sensory exam was intact to simultaneous stimulation except for some mild decreased sensation over the left dorsal wrist. Functionally, she is transferring with contact guard assistance. She has been ambulating a short distance with close assistance. She needs standby assistance for lower body dressing. ASSESSMENT: A 71-year-old white female with the following problem list: 1. Multiple right cerebral subcortical foci strokes. 2. Left-sided weakness, upper extremity greater than lower extremity that appears to be improving. 3. Left hemisensory decrease with some left-sided neglect that also appears to be improving. 4. Paroxysmal atrial fibrillation. 5. Cardiovascular accident secondary to the atrial fibrillation. 6. Hypertension. 7. Hyperlipidemia. 8. Hypoxia, possibly component of aspiration. PLAN: The patient is admitted for acute in-hospital inpatient rehabilitation. From a postadmission physician evaluation perspective, there are no relevant changes since the preadmission screening. Please see the above review of prior and current medical and functional conditions and comorbidities. Please see the patient's previous and current functional status. As far as risk of complications, the patient has the multiple medical comorbidities as noted above. Initial plan of care involves the interdisciplinary acute inpatient rehabilitation program with goal of maximizing the patient's functional independence, so that she can hopefully return back to her prior living situation. Measurable functional goals would be for her to become modified independent with transfers, mobility, ADLs, communication, swallow, and to return back to the home setting. Prognosis is reasonably good with estimated length of stay probably at least 7-10 days, pending progress. Potential barriers would include her multiple medical comorbidities and decreased functional status. [facility] [address] [place] [address] HISTORY AND PHYSICAL Name: MAMTA GANDHI Room #: 506-1 ADM IN M.R.#: [id number] Admission: 02/26/17 Attend Phys: Valentino Morrow MD Discharge: Date of : 43 Report #: [id number] The patient meets diagnostic criteria for an acute in-hospital inpatient rehabilitation stay. She meets medical necessity criteria and we will have the fashion consultant selling physicians continue to follow. She does have the tolerance for therapies and has appropriate discharge goals back to the home setting. ADDENDUM: [id number] notes that they have been getting the patient up at the bedside utilizing a gait belt and taking her to the bathroom. We will have the therapist go ahead and clear the family to do that officially. <ELECTRONICALLY SIGNED> By: Valentino Morrow MD 03/02/17 1509 0949 1022 Valentino Morrow MD /PMT
--- NOTE | ~2017-02-25 | HC ---
[facility] [place] [address] CONSULTATION Name: MAMTA GANDHI Room #: 506-1 ADM IN M.R.#: [id number] Admission: 02/26/17 Attend Phys: Valentino Morrow MD Discharge: Date of : 43 Report #: [id number] THIS REPORT FOR: //name// CC: Michael Morrow DATE OF SERVICE: 02/28/2017 NEUROBEHAVIORAL STATUS EXAM: ATTENDING PHYSICIAN: Valentino Morrow MD. CULTURE MEDIA LABORATORY ASSISTANT: Oscar Huntley, PhD. CLINICAL PRESENTATION: The patient is a 71-year-old female admitted to the rehab unit of [facility] for comprehensive inpatient rehabilitation program to improve functional mobility, activities of daily living and self-care and mental status secondary to deficits from a right middle cerebral artery infarction. She is reported to have had multiple right cerebral subcortical foci of strokes. The initial assessment also indicates left-sided weakness, upper extremity greater than lower extremity, left hemisensory decrease with some left-sided neglect, paroxysmal atrial fibrillation, cardiovascular accidents secondary to atrial fibrillation, hypertension, hyperlipidemia, and hypoxia. A complete description of her medical condition, history and medications can be found in her medical record. Neuropsychological consultation was requested to provide assistance in the assessment of cognitive and emotional status and to provide recommendations and services. Prior to this most recent admission, she was living independently in her own home. She has one son. The patient was independent with instrumental activities of daily living. She is a high school graduate and employment was with [employer] in [employer] prior to her usp. TECHNIQUES UTILIZED: Clinical interview, review of medical records, staff consultation and behavioral observation, mini mental status exam 2 standard version, brief abstract reasoning tests, clock drawing and category fluency assessment. EXAMINATION FINDINGS: The patient was alert and cooperative with the assessment. She accurately described events surrounding her admission. There is no evidence of aphasia. Her thoughts are logical and goal oriented. There is no evidence of thought disorder. She does not report auditory or visual hallucinations or suicidal ideation. 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 She also reports a history of treatment for depression. The patient does not report feeling depressed currently. [facility] [address] [place] [address] CONSULTATION Name: MAMTA GANDHI Room #: 506-1 [facility] IN M.R.#: [id number] Admission: 02/26/17 Attend Phys: Valentino Morrow MD Discharge: Date of : 43 Report #: [id number] Her symptoms are reported to include sleep, tiredness and fatigue and decreased word finding. She does not report difficulty with appetite or memory. The patient also indicates that her mood is good and she does not feel depressed. However, increased anxiety is suggested. Her performance on the MMSE 2 brief version is within normal limits with a raw score of 15 of 16. The patient was 2 of 3 for immediate recall of 3 items after a brief time delay and distraction. Her performance declined on MMSE 2 standard version to a raw score of 24 of 30, which is in the mild range of impairment with a T score of 38 and percentile rank of 12. She was unable to copy simple geometric design and was 1 of 5 for serial sevens. Her performance on the brief abstract reasoning test was in the impaired range with a raw score of 5 of 8. Category fluency was in the moderate range of impairment with a raw score of 24 and a T score of 27. Clock drawing was within normal limits. The patient is presenting with deficits in sustained attention and concentration, visual spatial organization and thought organization and executive functioning involving generally the speech. This type of impairment suggests a neurodegenerative disorder with subcortical features. 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 Adjustment disorder with anxious mood. RECOMMENDATIONS: The patient will benefit from continued cognitive rehabilitation and assistance in the utilization of compensatory strategies for her variability in cognitive functioning. Continued psychological support to assist in the management of anxiety and depression. She will benefit from verbal praise and compliments regarding her participation in therapies and reassurance in regard to her recovery. Thank you very much for allowing me to provide the consultation on this patient.BottomofForm <ELECTRONICALLY SIGNED> By: Osacr Huntley, PhD 03/01/17 [id number] Oscar Huntley, PhD /nt
[~2017-02-25 11:49] MED LIST: AMBIEN 5 MG TABL5 M1 PO; LIPITOR 20 MG T20 M1 PO; NORCO 5-325 TA1 EACH PO; TRAMADOL 50 MG50 MG PO; VALIUM5 MG PO
[2017-02-26 05:16] LABS: HEMATOCRIT 29.6 % (37.0-47.0); HEMOGLOBIN 9.7 gm/dL (12.0-15.0); MCHC 32.6 g/dL (28.0-37.0); MCV 79.7 fL (80.0-100.0); RBC 3.71 mil/uL (4.20-5.00); RDW 17.2 % (10.5-14.5); WBC 9.5 thou/uL (4.0-11.0)
[2017-02-26 05:22] LABS: CALCIUM 8.1 mg/dL (8.5-10.1); CREATININE 0.6 mg/dL (0.6-1.0); POTASSIUM 3.4 mmol/L (3.5-5.1)
[2017-02-26] MEDS ORDERED: IRON325 PO (11:59)
[2017-02-26] MEDS ORDERED: AUGMENTIN 875-1 EACH PO (11:59)
[2017-02-26] MEDS ORDERED: PRADAXA150 MG PO (11:59)
[2017-02-26] MEDS ORDERED: TAMBOCOR 100 M100 M1 PO (12:00)
[2017-02-26] MEDS ORDERED: METOPROLOL SUCC25 M1 PO (12:00)
[2017-02-26] MEDS ORDERED: MAGNESIUM400 MG PO (12:00)
[2017-02-26] MEDS ORDERED: ASPIR 8181 MG PO (12:00)
[2017-02-26] MEDS ORDERED: TYLENOL325 MG PO (12:00)
[2017-02-26] MEDS ORDERED: PEPCID20 MG PO (12:01)
[2017-02-26 13:45] VITALS: BP 161/79
[2017-02-26 20:00] VITALS: BP 142/63
[2017-02-26 21:26] VITALS: BP 175/79
[2017-02-27 07:30] VITALS: BP 152/71
[2017-02-27 20:32] VITALS: BP 175/71
[2017-02-28 08:00] VITALS: BP 156/74
[2017-02-28 20:48] VITALS: BP 154/72
[2017-03-01 08:50] VITALS: BP 182/79
[2017-03-01 20:24] VITALS: BP 152/64
[2017-03-02 04:28] LABS: BASOPHILS 0.7 % (0.0-2.0); EOSINOPHILS 2.9 % (0.0-3.0); HEMATOCRIT 31.9 % (37.0-47.0); HEMOGLOBIN 10.2 gm/dL (12.0-15.0); LYMPHOCYTES 27.6 % (24.0-44.0); MCH 25.8 pg (26.0-34.0); MCV 80.8 fL (80.0-100.0); MONOCYTES 8.6 % (1.0-8.0); PLATELET COUNT 471 thou/uL (150-400); POLYS 60.2 % (36.0-66.0); RBC 3.95 mil/uL (4.20-5.00); RDW 17.4 % (10.5-14.5); WBC 11.7 thou/uL (4.0-11.0)
[2017-03-02 04:47] LABS: ALBUMIN 2.7 g/dL (3.4-5.0); CALCIUM 8.7 mg/dL (8.5-10.1); CREATININE 0.8 mg/dL (0.6-1.0); MAGNESIUM 2.3 mg/dL (1.8-2.4); POTASSIUM 4.4 mmol/L (3.5-5.1); TOTAL BILIRUBIN 0.2 mg/dL (<0.1-1.0); TOTAL PROTEIN 7.5 g/dL (6.4-8.2)
[2017-03-02 08:00] VITALS: BP 159/78
[2017-03-02 19:52] VITALS: BP 151/59
[2017-03-03 08:00] VITALS: BP 124/72
[2017-03-03 20:08] VITALS: BP 127/67
[2017-03-04 07:31] VITALS: BP 124/62
[2017-03-04] MEDS ORDERED: METOPROLOL SUCC25 M1 PO (09:23)
[2017-03-04] MEDS ORDERED: IRON325 PO (09:23)
[2017-03-04] MEDS ORDERED: ANTIVERT25 MG PO (09:23)
[2017-03-04] MEDS ORDERED: AUGMENTIN 875-1 EACH PO (09:23)
[2017-03-04] MEDS ORDERED: ACIDOPHILUS1 EAC4 PO (09:23)
[2017-03-04] MEDS ORDERED: PRADAXA150 MG PO (09:23)
[2017-03-04] MEDS ORDERED: LIPITOR 20 MG T20 M1 PO (09:23)
[2017-03-04] MEDS ORDERED: ZOFRAN ODT4 MG DISSOLVE (09:23)
[2017-03-04 09:50] VITALS: BP 124/62
[2017-03-04 12:45] VITALS: BP 124/62
[2017-03-04] MEDS ORDERED: TAMBOCOR 100 M100 M1 PO (13:48)
[2017-03-04] MEDS ORDERED: MAGNESIUM400 MG PO (13:48)
[2017-03-04 15:02] VITALS: BP 124/62
[2017-03-04 15:04] VITALS: BP 124/62
== END 2017-03-04 15:20 | disposition home health service (06) | DRG 64 ==
LOC: ENTRNSPT 02-27 16:26 → EDTRNSPTSTS 03-04 13:53
PROVIDERS: Physical Medicine & Rehabilitation; Registered Nurse; Specialist
DX: I63.9 Cerebral infarction, unspecified (principal); J18.9 Pneumonia, unspecified organism; G81.94 Hemiplegia, unspecified affecting left nondominant side; R41.9 Unspecified symptoms and signs involving cognitive functions and awareness; Z66 Do not resuscitate; F43.22 Adjustment disorder with anxiety; I48.0 Paroxysmal atrial fibrillation; I48.91 Unspecified atrial fibrillation; I10 Essential (primary) hypertension; E78.5 Hyperlipidemia, unspecified; K52.9 Noninfective gastroenteritis and colitis, unspecified; D50.9 Iron deficiency anemia, unspecified; I27.20 Pulmonary hypertension, unspecified; E87.6 Hypokalemia; R53.81 Other malaise; Z87.11 Personal history of peptic ulcer disease; Z82.49 Family history of ischemic heart disease and other diseases of the circulatory system
CPT/HCPCS: 10112